=== PATIENT | female | born 1995 | race Caucasian/White ===

== ENCOUNTER 2024-04-17 11:02 | Inpatient (IN) ==
--- NOTE | 2024-04-17 11:33 | History & Physical Report ---
Date of Service April 17, 2024 Assessment & Plan (1) Supervision of normal intrauterine in primigravida: (2) Encounter for induction of labor: Plan Admit for iol. cannon/pit started. pt desires epidural. VSS. FHT category 1. Rh+, gbs neg, ri. Admission and Anticipated Discharge Date Admission Date: April 17, 2024 History of Present Illness Primary Care Provider: Holly Umana MD Marilee is a 29yo G1 currently at 41 WGA with an RADHA 04/10/24 as determined by US who is here for induction of labor. She has had regular appointments with OB. She has been short of breath for a few days, especially when lying down, and notes significant swelling in both legs and feet. She denies fevers, fatigue, STERN, chest pain, or n/v exceeding baseline -related symptoms. Mild, irregular contractions; movement present; no fluid loss or bloody show External FHT and external uterine monitors used, FHT category # (140/mod/acel+/decel-) Blood type: O+ Antibody screen: Neg GBS: Neg Rubella: Immune VDRL/RPR: Non-reactive Gonorrhea: Not detected Chalmydia: Not detected HIV: Non-reactive HbSAg: Non-reactive Allergies Allergy/AdvReac Type Severity Reaction Status Date / Time No Known Allergies Allergy Verified 04/16/24 09:05 Home Medications Medication Instructions Recorded Confirmed Type docosahexaenoic acid [ DHA] 1 tab PO UD 09/06/23 04/17/24 History Past Med/Surg History Problem List (Updated 04/17/24 @ 11:34 by Shani Ann MD) Encounter for induction of labor Encounter for anatomic survey Supervision of normal intrauterine in primigravida Muscle herniation Hyperinsulinism syndrome Obesity PCOS (polycystic ovarian syndrome) Medical History (Updated 04/17/24 @ 11:34 by Shani Ann MD) No known health problems Surgical History H/O wisdom tooth extraction Family History Mother Hypertension Family/Other Breast cancer maternal great aunt Other Family history non-contributory Myocardial infarction Stomach cancer Thyroid cancer Denies family history of Ovarian cancer Prostate cancer Colorectal cancer Social History Smoking Status: Never smoker Second Hand Exposure: No; Do You Dip or Chew Tobacco: No; Hx Alcohol Use: No Hx Substance Use: No Preferred Language: Divehi Communication Ability: Effective X Ray Nurse Required: No Beliefs That Will Affect Care: None marital status: marital status details: Luis Miguel (31) [phone] Current Living Situation: Spouse Current Living Situation Comment: Luis Miguel- current occupational status: employed current occupation: Radiation Therapist Other Information That Helps Us Care for You: No Feels Safe at Home: Yes Safety Concerns: Feels Safe At This Time Dental Care, Regularly: Yes Physical Activity Frequency: 1-2 Times per Week Seatbelt Use: always Sunscreen Use: Yes Assistive Devices: None Physical Exam Physical Exam: General: Alert and oriented. No acute distress CV: Regular rate and rhythm. No murmurs. Respiratory: CTA bilaterally. No rhonchi, wheezes, or crackles. No increased work of breathing. Abdomen: Gravid: Soft, nontender upon palpation Pelvic: 1/50/-2/soft/mid per Dr. Palacios Lower extremities: NO LE edema. No deep calf pain. Results & Data Results & Data Vital Signs (Past 12 Hours) Vital Signs Temp Pulse Resp BP Pulse Ox 04/17/24 11:42 64 95 04/17/24 11:37 65 96 04/17/24 11:32 68 94 04/17/24 11:27 66 95 04/17/24 11:22 71 94 04/17/24 11:17 69 92 04/17/24 11:12 70 95 04/17/24 11:07 72 95 04/17/24 11:04 20 04/17/24 11:04 36.9 C 20 04/17/24 11:04 69 125/58 L 04/17/24 11:03 75 94 Supervising Physician Co-Signing Physician Notes Resident Physician Supervision Note: I interviewed and examined the patient. Discussed with Dr. Faustin and agree with findings and plan as documented in the note. Any exceptions or clarifications are listed here: Patient is a g1po with iup at 41 weeks who presents for postdates induction. Patient notes she has been sob for many days. She notes she cannot lie flat. Has had swelling for several days as well. Not tachy. BP wnl. sating mostly >95% on room air. No JVD. Has +1-+2 pitting edema to the leg. Lungs ctab. Cx not favorable. cx--/-2. Verbal consent obatined for cannon for ripening. speculum placed. cannon threaded through cervix and balloon filled wtih 30cc of sterile water. speculum removed. tolerated well toco--intermittent contraction efm--140s wtih mod variability accels to 160s, no decels Start pit with bulb. arom when indicated. epidural on demand. anticipate . Documented By: Wanda Palacios MD, FACOG Resident Activity Tracking Resident Involvement: Resident Care Provided Care Provided: OB Delivery
[2024-04-17] MEDS ORDERED: LIDOCAINE 1% LOCAL 20 ML VIAL INFIL PRN (11:42)
[2024-04-17] MEDS ORDERED: OXYTOCIN 30 UNITS/NSS 30 UNITS/500 ML BAG IV PRN (11:42)
[2024-04-17] MEDS: OXYTOCIN 30 UNITS/NSS 30 UNITS/500 ML BAG IV PRN (12:15)
[2024-04-17] MEDS: LACTATED RINGER'S 1,000 ML IV PRN (12:15)
[2024-04-17 12:36] LABS: Hematocrit (blood only) 32.3 % (37.0-47.0); Hemoglobin 10.2 g/dl (12.0-16.0); Mean Corpuscular Hemoglobin 25.1 pg (25.0-34.0); Mean Corpuscular Hgb Conc 31.6 g/dL (32.0-36.0); Mean Corpuscular Volume 79.4 fL (80.0-100.0); Mean Platelet Volume 11.1 fL (9.4-12.4); Platelet Count 233 K/uL (130-400); RDW Standard Deviation 45.5 fL (36.4-46.3); Red Blood Count 4.07 M/uL (4.20-5.40); White Blood Count 10.25 K/ul (4.8-10.8)
[2024-04-17 12:38] LABS: Bilirubin,Total 0.4 mg/dl (0.2-1.0); Calcium 8.1 mg/dl (8.6-10.3); Potassium 3.8 mmol/L (3.5-5.1)
[2024-04-17 12:44] LABS: BUN Creatinine Ratio 14.5 (10-20); Creatinine Clr Calc Pharmacy 156.9 ml/min; Est GFR (African American) 139.3 ml/min; Est GFR (Non-African American) 120.2 ml/min; Globulin 3.1 gm/dl (2.5-4.0); Total Protein 6.1 gm/dl (6.0-8.3)
--- NOTE | 2024-04-17 18:26 | Labor Progress Brief Note ---
Date of Service April 17, 2024 Subjective notes some contractions , but not too painful Assessment & Plan (1) Encounter for induction of labor: Plan plan epidural then arom. Fetus category one. Admission and Anticipated Discharge Date Admission Date: April 17, 2024 Physical Exam Physical Exam: cx--4/75/-2 toco--q2-4, pit at 10 efm--130s with mod variability, accels to 150s, no decels Results & Data Vital Signs (Past 12 Hours) Vital Signs Temp Pulse Resp BP Pulse Ox 04/17/24 18:19 53 L 100 04/17/24 18:14 61 99 04/17/24 18:09 63 99 04/17/24 18:06 58 L 119/56 L 04/17/24 18:04 68 99 04/17/24 18:00 18 04/17/24 18:00 18 04/17/24 17:59 64 99 04/17/24 17:54 62 100 04/17/24 17:49 61 99 04/17/24 17:44 62 100 04/17/24 17:39 60 100 04/17/24 17:34 60 100 04/17/24 17:29 54 L 100 04/17/24 17:24 53 L 100 04/17/24 17:19 55 L 100 04/17/24 17:14 51 L 100 04/17/24 17:09 53 L 100 04/17/24 17:04 52 L 100 04/17/24 17:02 51 L 139/68 04/17/24 16:00 18 04/17/24 16:00 18 04/17/24 15:56 61 118/63 04/17/24 15:00 18 04/17/24 15:00 36.7 C 18 04/17/24 14:56 61 132/80 04/17/24 13:51 58 L 127/59 L 04/17/24 13:30 20 04/17/24 13:30 20 04/17/24 12:58 56 L 151/70 H 04/17/24 12:20 62 141/71 H 04/17/24 11:42 64 95 04/17/24 11:37 65 96 04/17/24 11:32 68 94 04/17/24 11:27 66 95 04/17/24 11:22 71 94 04/17/24 11:17 69 92 04/17/24 11:12 70 95 04/17/24 11:07 72 95 04/17/24 11:04 20 04/17/24 11:04 36.9 C 20 04/17/24 11:04 69 125/58 L 04/17/24 11:03 75 94 Coding Level of Care Code None Diagnoses Encounter for induction of labor Z34.90
[2024-04-17] MEDS ORDERED: ePHEDrine sulfate 50 MG/ML AMP IV PRN (18:53)
[2024-04-17] MEDS ORDERED: NALOXONE HCL 1 MG in SODIUM CHLORIDE 0.9% 1,000 ML IV PRN (18:53)
[2024-04-17] MEDS ORDERED: NALOXONE HCL 0.4 MG/1 ML VIAL/CARP IV PRN (18:53)
[2024-04-17] MEDS ORDERED: diphenhydrAMINE 50 MG/ML VIAL IV PRN (18:53)
[2024-04-17] MEDS ORDERED: BUPIVACAINE 0.25% PF 30 ML VIAL EPI PRN (18:53)
[2024-04-17] MEDS ORDERED: NALBUPHINE HCL INJ 10 MG/ML AMP IV PRN (18:53)
[2024-04-17] MEDS ORDERED: fentaNYL citrate PF 100 MCG/2 ML VIAL EPI PRN (18:53)
[2024-04-17] MEDS ORDERED: LIDOCAINE 2% MPF LOCAL 5 ML VIAL EPI PRN (18:53)
[2024-04-17] MEDS ORDERED: SODIUM CHLORIDE 0.9% PF INJ 10 ML VIAL EPI PRN (18:53)
[2024-04-17] MEDS ORDERED: ROPIVACAINE 0.5% PF 5 MG/ML 20 ML VIAL EPI PRN (18:53)
--- NOTE | 2024-04-17 18:53 | Anesthesiology Consultation ---
Date of Service April 17, 2024 Assessment & Plan Chart Review Chart Review: Acceptable Risk for Labor Epidural Consults Requested none History Height/Weight Height: 5 ft 2 in Weight: 113.852 kg Allergies Allergy/AdvReac Type Severity Reaction Status Date / Time No Known Allergies Allergy Verified 04/16/24 09:05 Medications Home Medications Medication Instructions Recorded Confirmed Last Taken docosahexaenoic acid [ DHA] 1 tab PO UD 09/06/23 04/17/24 04/16/24 09:00 Active Medications Generic Name Dose Route Start Last Admin Trade Name Freq PRN Reason Stop Dose Admin Lactated Ringer's 1,000 mls @ 125 mls/hr 04/17/24 11:42 04/17/24 18:38 Lr IV 04/19/24 11:41 999 mls/hr .Q8H PRN Administration L&D Protocol Protocol Oxytocin 30 units in 500 mls @ 10 mls/hr 04/17/24 11:43 04/17/24 18:00 Pitocin 30 Units/Nss IV 04/19/24 11:42 0.6 units/hr .Q24H PRN 10 mls/hr Labor Induction/Augmentation Titration Protocol 0.6 UNITS/HR Past Medical History Medical History (Updated 04/17/24 @ 11:34 by Shani Ann MD) No known health problems Past Family History Family History Mother Hypertension Family/Other Breast cancer maternal great aunt Other Family history non-contributory Myocardial infarction Stomach cancer Thyroid cancer Denies family history of Ovarian cancer Prostate cancer Colorectal cancer Past Surgical History Surgical History H/O wisdom tooth extraction Social History Smoking Status: Never smoker Do You Dip or Chew Tobacco: No Hx Alcohol Use: No Hx Substance Use: No Physical Exam Vital Signs Last Vital Signs Temp 36.7 C 04/17/24 15:00 Pulse 56 L 04/17/24 18:24 Resp 18 04/17/24 18:00 BP 119/56 L 04/17/24 18:06 Pulse Ox 100 04/17/24 18:24 Testing Laboratory Results 04/17/24 12:11 04/17/24 12:11 Blood Type O Positive 08/29/24 12:11 Antibody Screen NEGATIVE 04/17/24 12:11
[2024-04-17] MEDS: SODIUM CHLORIDE 0.9% PF INJ 10 ML VIAL ONE (19:00)
[2024-04-17] MEDS: fentaNYL citrate PF 100 MCG/2 ML VIAL ONE (19:00)
[2024-04-17] MEDS: fentANYL 2 MCG/ML BUPIVacaine 0.125%-NSS 100ML BAG ONE (19:00)
[2024-04-17] MEDS: LIDOCAINE 2%/EPINEPHRINE 1:200,000 20 ML PF ONE (19:00)
[2024-04-17] MEDS: ePHEDrine sulfate 50 MG/ML AMP ONE (19:00)
[2024-04-17] MEDS: BUPIVACAINE 0.25% PF 30 ML VIAL ONE (19:00)
[2024-04-17] MEDS: fentANYL 2 MCG/ML BUPIVacaine 0.125%-NSS 100ML BAG EPI PRN (19:22)
[2024-04-17] MEDS: LIDOCAINE 2%/EPINEPHRINE 1:200,000 20 ML PF EPI STA (19:22)
[2024-04-17] MEDS: SODIUM CHLORIDE 0.9% PF INJ 10 ML VIAL EPI STA (19:48)
[2024-04-17] MEDS: BUPIVACAINE 0.25% PF 30 ML VIAL EPI STA (19:48)
[2024-04-17] MEDS: CALCIUM CARBONATE 500 MG CHEWABLE TAB PO PRN (19:54)
[2024-04-17] MEDS: ONDANSETRON INJ 2 MG/ML 2 ML VIAL IV PRN (21:31)
--- NOTE | 2024-04-18 00:34 | Labor Progress Brief Note ---
Date of Service April 18, 2024 Subjective comfortable with epidural, pit at 16 Assessment & Plan (1) Encounter for induction of labor: Plan iupc and fse placed. mec noted with this check. With rom, did not get much fluid at all but noted with placement of iupc. Contractions do not appear adequate so will increase pit with goal of >200mvu. FEtus category one. Admission and Anticipated Discharge Date Admission Date: April 17, 2024 Physical Exam Physical Exam: cx--4-5/80/-2 toco--q2-3min efm--130s wtih mod variabiltiy, accels to 160s, no decels. Has periods of prolonged accels to 160s iupc and fse placed. mec noted with exam Results & Data Vital Signs (Past 12 Hours) Vital Signs Temp Pulse Resp BP Pulse Ox O2 Del Method 04/18/24 00:29 61 99 04/18/24 00:24 65 98 04/18/24 00:23 58 L 136/69 04/18/24 00:19 56 L 99 04/18/24 00:14 58 L 100 04/18/24 00:09 59 L 96 04/18/24 00:07 75 159/72 H 04/18/24 00:04 56 L 96 04/18/24 00:00 18 04/18/24 00:00 18 04/17/24 23:59 59 L 97 04/17/24 23:54 61 94 04/17/24 23:53 54 L 133/65 04/17/24 23:49 53 L 96 04/17/24 23:44 54 L 96 04/17/24 23:39 51 L 96 04/17/24 23:38 51 L 134/64 04/17/24 23:34 51 L 96 04/17/24 23:30 18 04/17/24 23:30 18 04/17/24 23:29 52 L 96 04/17/24 23:24 49 L 97 04/17/24 23:22 61 147/72 H 04/17/24 23:19 51 L 96 04/17/24 23:14 54 L 96 04/17/24 23:09 51 L 95 04/17/24 23:06 49 L 133/68 04/17/24 23:04 53 L 95 04/17/24 23:00 18 04/17/24 23:00 18 04/17/24 22:59 53 L 95 04/17/24 22:54 51 L 95 04/17/24 22:52 49 L 129/66 04/17/24 22:49 56 L 95 04/17/24 22:44 52 L 97 04/17/24 22:39 52 L 96 04/17/24 22:36 54 L 137/67 04/17/24 22:34 52 L 96 04/17/24 22:30 18 04/17/24 22:30 18 04/17/24 22:29 54 L 96 04/17/24 22:24 59 L 98 04/17/24 22:19 56 L 97 04/17/24 22:14 54 L 98 04/17/24 22:10 18 04/17/24 22:10 36.7 C 18 04/17/24 22:09 52 L 99 04/17/24 22:04 55 L 98 04/17/24 21:59 57 L 98 04/17/24 21:54 56 L 97 04/17/24 21:53 58 L 134/64 04/17/24 21:49 58 L 98 04/17/24 21:44 56 L 97 04/17/24 21:39 53 L 98 04/17/24 21:38 50 L 131/61 04/17/24 21:34 56 L 98 04/17/24 21:30 18 04/17/24 21:30 18 04/17/24 21:29 60 100 04/17/24 21:24 60 99 04/17/24 21:23 51 L 138/66 04/17/24 21:19 49 L 99 04/17/24 21:14 55 L 100 04/17/24 21:09 51 L 99 04/17/24 21:06 48 L 145/70 H 04/17/24 21:04 58 L 98 04/17/24 21:00 18 04/17/24 21:00 18 04/17/24 20:59 58 L 98 04/17/24 20:54 57 L 98 04/17/24 20:52 50 L 115/65 04/17/24 20:49 51 L 97 04/17/24 20:44 61 98 04/17/24 20:39 56 L 98 04/17/24 20:37 55 L 136/62 04/17/24 20:34 52 L 99 04/17/24 20:30 18 04/17/24 20:30 18 04/17/24 20:29 54 L 100 04/17/24 20:24 65 99 04/17/24 20:22 58 L 127/97 04/17/24 20:20 36.7 C 04/17/24 20:19 61 100 04/17/24 20:14 65 98 04/17/24 20:09 56 L 99 04/17/24 20:08 60 148/66 H 04/17/24 20:04 53 L 100 04/17/24 20:00 18 04/17/24 20:00 18 04/17/24 19:59 57 L 100 04/17/24 19:54 100 04/17/24 19:54 57 L 04/17/24 19:54 52 L 136/64 04/17/24 19:49 58 L 100 04/17/24 19:44 54 L 100 04/17/24 19:39 64 99 04/17/24 19:35 53 L 115/57 L 04/17/24 19:34 53 L 99 04/17/24 19:33 56 L 122/60 04/17/24 19:32 36.9 C 18 04/17/24 19:32 Room Air 04/17/24 19:31 54 L 120/59 L 04/17/24 19:29 56 L 122/59 L 99 04/17/24 19:27 56 L 126/56 L 04/17/24 19:25 57 L 114/58 L 04/17/24 19:24 60 99 04/17/24 19:23 58 L 113/56 L 04/17/24 19:21 72 121/51 L 04/17/24 19:20 69 128/58 L 04/17/24 19:19 76 99 04/17/24 19:17 68 144/64 H 04/17/24 19:15 61 135/63 04/17/24 19:14 59 L 99 04/17/24 19:12 51 L 85 L 04/17/24 19:09 61 100 04/17/24 19:08 36.9 C 54 L 18 145/64 H 04/17/24 19:04 56 L 99 04/17/24 18:24 56 L 100 04/17/24 18:19 53 L 100 04/17/24 18:14 61 99 04/17/24 18:09 63 99 04/17/24 18:06 58 L 119/56 L 04/17/24 18:04 68 99 04/17/24 18:00 18 04/17/24 18:00 18 04/17/24 17:59 64 99 04/17/24 17:54 62 100 04/17/24 17:49 61 99 04/17/24 17:44 62 100 04/17/24 17:39 60 100 04/17/24 17:34 60 100 04/17/24 17:29 54 L 100 04/17/24 17:24 53 L 100 04/17/24 17:19 55 L 100 04/17/24 17:14 51 L 100 04/17/24 17:09 53 L 100 04/17/24 17:04 52 L 100 04/17/24 17:02 51 L 139/68 04/17/24 16:00 18 04/17/24 16:00 18 04/17/24 15:56 61 118/63 04/17/24 15:00 18 04/17/24 15:00 36.7 C 18 04/17/24 14:56 61 132/80 04/17/24 13:51 58 L 127/59 L 04/17/24 13:30 20 04/17/24 13:30 20 04/17/24 12:58 56 L 151/70 H Coding Level of Care Code None Diagnoses Encounter for induction of labor Z34.90
--- NOTE | 2024-04-18 06:40 | Labor Progress Brief Note ---
Date of Service April 18, 2024 Subjective comfortable with epidural Assessment & Plan (1) Encounter for induction of labor: (2) Obesity: Plan Fetus category one. Not a functional labor pattern and mvs not adequate. Has not reached 30 mU at this point. Continue to attempt to achieve adequate contraction pattern. cx check deferred as not adequate. Admission and Anticipated Discharge Date Admission Date: April 17, 2024 Physical Exam Physical Exam: cx--deferred toco--q2min, Mvus <200, pit at 28 efm--135 with mod variability, accels to 150s, no decels Results & Data Vital Signs (Past 12 Hours) Vital Signs Temp Pulse Resp BP Pulse Ox O2 Del Method 04/18/24 06:34 51 L 96 04/18/24 06:29 49 L 96 04/18/24 06:24 52 L 96 04/18/24 06:22 49 L 140/65 04/18/24 06:19 53 L 97 04/18/24 06:14 57 L 97 04/18/24 06:10 16 04/18/24 06:10 37.0 C 16 04/18/24 06:09 51 L 96 04/18/24 06:08 56 L 142/63 H 04/18/24 06:04 65 97 04/18/24 06:00 16 04/18/24 06:00 16 04/18/24 05:59 50 L 96 04/18/24 05:54 50 L 96 04/18/24 05:53 48 L 137/64 04/18/24 05:49 56 L 95 04/18/24 05:44 55 L 95 04/18/24 05:39 52 L 96 04/18/24 05:37 52 L 127/70 04/18/24 05:34 58 L 96 04/18/24 05:30 16 04/18/24 05:30 16 04/18/24 05:29 61 96 04/18/24 05:24 54 L 96 04/18/24 05:23 53 L 131/58 L 04/18/24 05:19 53 L 96 04/18/24 05:14 53 L 95 04/18/24 05:09 51 L 96 04/18/24 05:07 50 L 134/61 04/18/24 05:04 56 L 95 04/18/24 05:00 16 04/18/24 05:00 16 04/18/24 04:59 56 L 96 04/18/24 04:54 53 L 96 04/18/24 04:52 60 157/65 H 04/18/24 04:49 51 L 96 04/18/24 04:44 57 L 96 04/18/24 04:39 55 L 96 04/18/24 04:38 57 L 133/70 04/18/24 04:34 53 L 97 04/18/24 04:30 16 04/18/24 04:30 16 04/18/24 04:29 53 L 96 04/18/24 04:24 58 L 95 04/18/24 04:23 57 L 131/73 04/18/24 04:19 52 L 95 04/18/24 04:14 54 L 96 04/18/24 04:09 60 95 04/18/24 04:07 59 L 133/64 04/18/24 04:04 60 96 04/18/24 04:00 16 04/18/24 04:00 37.0 C 16 04/18/24 03:59 54 L 95 04/18/24 03:54 57 L 96 04/18/24 03:52 63 128/65 04/18/24 03:49 53 L 96 04/18/24 03:44 58 L 96 04/18/24 03:39 56 L 96 04/18/24 03:37 59 L 134/67 04/18/24 03:34 59 L 96 04/18/24 03:29 57 L 96 04/18/24 03:24 58 L 96 04/18/24 03:21 69 154/73 H 04/18/24 03:19 60 95 04/18/24 03:14 53 L 95 04/18/24 03:09 57 L 95 04/18/24 03:07 61 135/64 04/18/24 03:04 59 L 95 04/18/24 02:59 61 94 04/18/24 02:54 62 95 04/18/24 02:52 68 146/64 H 04/18/24 02:49 55 L 96 04/18/24 02:44 56 L 96 04/18/24 02:39 57 L 96 04/18/24 02:36 48 L 140/68 04/18/24 02:34 60 95 04/18/24 02:29 57 L 95 04/18/24 02:24 57 L 95 04/18/24 02:21 58 L 138/61 04/18/24 02:19 60 95 04/18/24 02:14 59 L 97 04/18/24 02:11 18 04/18/24 02:11 36.9 C 18 04/18/24 02:09 66 97 04/18/24 02:06 50 L 139/65 04/18/24 02:04 59 L 96 04/18/24 02:00 18 04/18/24 02:00 18 04/18/24 01:59 59 L 96 04/18/24 01:54 56 L 96 04/18/24 01:51 59 L 138/62 04/18/24 01:49 57 L 96 04/18/24 01:44 60 96 04/18/24 01:39 56 L 96 04/18/24 01:36 57 L 149/67 H 04/18/24 01:34 57 L 96 04/18/24 01:29 58 L 96 04/18/24 01:24 61 95 04/18/24 01:23 56 L 135/61 04/18/24 01:19 61 96 04/18/24 01:14 59 L 97 04/18/24 01:09 54 L 96 04/18/24 01:07 63 139/63 04/18/24 01:04 60 96 04/18/24 01:00 18 04/18/24 01:00 18 04/18/24 00:59 57 L 96 04/18/24 00:54 55 L 96 04/18/24 00:49 60 97 04/18/24 00:44 56 L 137/66 99 04/18/24 00:42 51 L 126/67 04/18/24 00:40 18 04/18/24 00:40 18 04/18/24 00:39 56 L 98 04/18/24 00:38 57 L 152/70 H 04/18/24 00:34 63 99 04/18/24 00:29 61 99 04/18/24 00:24 65 98 04/18/24 00:23 58 L 136/69 04/18/24 00:19 56 L 99 04/18/24 00:15 18 04/18/24 00:15 18 04/18/24 00:15 18 04/18/24 00:15 36.9 C 18 04/18/24 00:14 58 L 100 04/18/24 00:09 59 L 96 04/18/24 00:07 75 159/72 H 04/18/24 00:04 56 L 96 04/18/24 00:00 18 04/18/24 00:00 18 04/17/24 23:59 59 L 97 04/17/24 23:54 61 94 04/17/24 23:53 54 L 133/65 04/17/24 23:49 53 L 96 04/17/24 23:44 54 L 96 04/17/24 23:39 51 L 96 04/17/24 23:38 51 L 134/64 04/17/24 23:34 51 L 96 04/17/24 23:30 18 04/17/24 23:30 18 04/17/24 23:29 52 L 96 04/17/24 23:24 49 L 97 04/17/24 23:22 61 147/72 H 04/17/24 23:19 51 L 96 04/17/24 23:14 54 L 96 04/17/24 23:09 51 L 95 04/17/24 23:06 49 L 133/68 04/17/24 23:04 53 L 95 04/17/24 23:00 18 04/17/24 23:00 18 04/17/24 22:59 53 L 95 04/17/24 22:54 51 L 95 04/17/24 22:52 49 L 129/66 04/17/24 22:49 56 L 95 04/17/24 22:44 52 L 97 04/17/24 22:39 52 L 96 04/17/24 22:36 54 L 137/67 04/17/24 22:34 52 L 96 04/17/24 22:30 18 04/17/24 22:30 18 04/17/24 22:29 54 L 96 04/17/24 22:24 59 L 98 04/17/24 22:19 56 L 97 04/17/24 22:14 54 L 98 04/17/24 22:10 18 04/17/24 22:10 36.7 C 18 04/17/24 22:09 52 L 99 04/17/24 22:04 55 L 98 04/17/24 21:59 57 L 98 04/17/24 21:54 56 L 97 04/17/24 21:53 58 L 134/64 04/17/24 21:49 58 L 98 04/17/24 21:44 56 L 97 04/17/24 21:39 53 L 98 04/17/24 21:38 50 L 131/61 04/17/24 21:34 56 L 98 04/17/24 21:30 18 04/17/24 21:30 18 04/17/24 21:29 60 100 04/17/24 21:24 60 99 04/17/24 21:23 51 L 138/66 04/17/24 21:19 49 L 99 04/17/24 21:14 55 L 100 04/17/24 21:09 51 L 99 04/17/24 21:06 48 L 145/70 H 04/17/24 21:04 58 L 98 04/17/24 21:00 18 04/17/24 21:00 18 04/17/24 20:59 58 L 98 04/17/24 20:54 57 L 98 04/17/24 20:52 50 L 115/65 04/17/24 20:49 51 L 97 04/17/24 20:44 61 98 04/17/24 20:39 56 L 98 04/17/24 20:37 55 L 136/62 04/17/24 20:34 52 L 99 04/17/24 20:30 18 04/17/24 20:30 18 04/17/24 20:29 54 L 100 04/17/24 20:24 65 99 04/17/24 20:22 58 L 127/97 04/17/24 20:20 36.7 C 04/17/24 20:19 61 100 04/17/24 20:14 65 98 04/17/24 20:09 56 L 99 04/17/24 20:08 60 148/66 H 04/17/24 20:04 53 L 100 04/17/24 20:00 18 04/17/24 20:00 18 04/17/24 19:59 57 L 100 04/17/24 19:54 100 04/17/24 19:54 57 L 04/17/24 19:54 52 L 136/64 04/17/24 19:49 58 L 100 08/29/24 19:44 54 L 100 04/17/24 19:39 64 99 04/17/24 19:35 53 L 115/57 L 04/17/24 19:34 53 L 99 04/17/24 19:33 56 L 122/60 04/17/24 19:32 36.9 C 18 04/17/24 19:32 Room Air 04/17/24 19:31 54 L 120/59 L 04/17/24 19:29 56 L 122/59 L 99 04/17/24 19:27 56 L 126/56 L 04/17/24 19:25 57 L 114/58 L 04/17/24 19:24 60 99 04/17/24 19:23 58 L 113/56 L 04/17/24 19:21 72 121/51 L 04/17/24 19:20 69 128/58 L 04/17/24 19:19 76 99 04/17/24 19:17 68 144/64 H 04/17/24 19:15 61 135/63 04/17/24 19:14 59 L 99 04/17/24 19:12 51 L 85 L 04/17/24 19:09 61 100 04/17/24 19:08 36.9 C 54 L 18 145/64 H 04/17/24 19:04 56 L 99 Coding Level of Care Code None Diagnoses Encounter for induction of labor Z34.90 Obesity E66.9
--- NOTE | 2024-04-18 10:02 | Labor Progress Brief Note ---
Date of Service April 18, 2024 Subjective pt comfortable with epidural. she is tired. asks about baby status Assessment & Plan (1) Encounter for induction of labor: Plan discussed with pt that thus far inadequate labor by mvu's. pit now at 30. options are to halve pit and try to retitrate to achieve adequate labor pattern. right now on exam, there does not seem to be any power of ctx. fhts categ 1, pt reassured by me that in no way is fetus showing anything concerns, explained spont accels etc. she can choose to proceed to c/s now electively. i have not made a diagnosis of failure to progress. Even if we try to persist with getting better labor pattern she may not progress, she may ultimately need c/s. She asked me if I can predict this and I cannot. FHTs categ 1, so i think we have time to try ie. no signs of needing to change course. Admission and Anticipated Discharge Date Admission Date: April 17, 2024 Physical Exam Constitutional: WD/WN, vitals as above Genitourinary: Manual OB Exam: + cervical dilation (no pressure of cephalic against cx. ) 5 cm, + cervical effacement (75%), + station -2 and + amniotic fluid (thin) meconium OB Exam Monitor Tracing: + scalp electrode used, + intra-uterine pressure catheter used (mvu's inadeq), + category I and + normal FHT variability Results & Data Vital Signs (Past 12 Hours) Vital Signs Temp Pulse Resp BP Pulse Ox 04/18/24 09:54 50 L 97 04/18/24 09:49 54 L 98 04/18/24 09:44 47 L 95 04/18/24 09:39 49 L 95 04/18/24 09:37 47 L 155/70 H 04/18/24 09:34 48 L 94 04/18/24 09:30 20 04/18/24 09:30 20 04/18/24 09:29 50 L 94 04/18/24 09:24 46 L 95 04/18/24 09:22 46 L 153/68 H 04/18/24 09:19 46 L 95 04/18/24 09:14 46 L 95 04/18/24 09:09 47 L 95 04/18/24 09:06 44 L 139/68 04/18/24 09:04 48 L 95 04/18/24 08:59 48 L 95 04/18/24 08:54 49 L 95 04/18/24 08:51 99.0 F 45 L 20 137/65 04/18/24 08:49 48 L 96 04/18/24 08:44 52 L 98 04/18/24 08:39 50 L 98 04/18/24 08:37 50 L 138/63 04/18/24 08:34 63 96 04/18/24 08:29 51 L 96 04/18/24 08:24 52 L 96 04/18/24 08:22 49 L 166/74 H 04/18/24 08:19 53 L 95 04/18/24 08:14 48 L 97 04/18/24 08:09 49 L 96 04/18/24 08:06 56 L 161/77 H 04/18/24 08:04 52 L 97 04/18/24 07:59 50 L 96 04/18/24 07:54 51 L 98 04/18/24 07:53 56 L 163/76 H 04/18/24 07:49 52 L 97 04/18/24 07:44 54 L 97 04/18/24 07:39 48 L 95 04/18/24 07:36 51 L 149/72 H 04/18/24 07:34 46 L 97 04/18/24 07:29 51 L 95 04/18/24 07:24 56 L 96 04/18/24 07:21 52 L 20 153/82 H 04/18/24 07:20 98.2 F 20 04/18/24 07:19 49 L 97 04/18/24 07:15 51 L 153/74 H 04/18/24 07:14 98 04/18/24 07:14 56 L 04/18/24 07:14 56 L 163/73 H 04/18/24 07:09 59 L 98 04/18/24 07:08 59 L 176/78 H 04/18/24 07:04 48 L 95 04/18/24 06:59 54 L 95 04/18/24 06:54 48 L 96 04/18/24 06:52 51 L 155/72 H 04/18/24 06:49 54 L 95 04/18/24 06:44 53 L 95 04/18/24 06:39 50 L 95 04/18/24 06:37 51 L 156/72 H 04/18/24 06:34 51 L 96 04/18/24 06:29 49 L 96 04/18/24 06:24 52 L 96 04/18/24 06:22 49 L 140/65 04/18/24 06:19 53 L 97 04/18/24 06:14 57 L 97 04/18/24 06:10 16 04/18/24 06:10 98.6 F 16 04/18/24 06:09 51 L 96 04/18/24 06:08 56 L 142/63 H 04/18/24 06:04 65 97 04/18/24 06:00 16 04/18/24 06:00 16 04/18/24 05:59 50 L 96 04/18/24 05:54 50 L 96 04/18/24 05:53 48 L 137/64 04/18/24 05:49 56 L 95 04/18/24 05:44 55 L 95 04/18/24 05:39 52 L 96 04/18/24 05:37 52 L 127/70 04/18/24 05:34 58 L 96 04/18/24 05:30 16 04/18/24 05:30 16 04/18/24 05:29 61 96 04/18/24 05:24 54 L 96 04/18/24 05:23 53 L 131/58 L 04/18/24 05:19 53 L 96 04/18/24 05:14 53 L 95 04/18/24 05:09 51 L 96 04/18/24 05:07 50 L 134/61 04/18/24 05:04 56 L 95 04/18/24 05:00 16 04/18/24 05:00 16 04/18/24 04:59 56 L 96 04/18/24 04:54 53 L 96 04/18/24 04:52 60 157/65 H 04/18/24 04:49 51 L 96 04/18/24 04:44 57 L 96 04/18/24 04:39 55 L 96 04/18/24 04:38 57 L 133/70 04/18/24 04:34 53 L 97 04/18/24 04:30 16 04/18/24 04:30 16 04/18/24 04:29 53 L 96 04/18/24 04:24 58 L 95 04/18/24 04:23 57 L 131/73 04/18/24 04:19 52 L 95 04/18/24 04:14 54 L 96 04/18/24 04:09 60 95 04/18/24 04:07 59 L 133/64 04/18/24 04:04 60 96 04/18/24 04:00 16 04/18/24 04:00 98.6 F 16 04/18/24 03:59 54 L 95 04/18/24 03:54 57 L 96 04/18/24 03:52 63 128/65 04/18/24 03:49 53 L 96 04/18/24 03:44 58 L 96 04/18/24 03:39 56 L 96 04/18/24 03:37 59 L 134/67 04/18/24 03:34 59 L 96 04/18/24 03:29 57 L 96 04/18/24 03:24 58 L 96 04/18/24 03:21 69 154/73 H 04/18/24 03:19 60 95 04/18/24 03:14 53 L 95 04/18/24 03:09 57 L 95 04/18/24 03:07 61 135/64 04/18/24 03:04 59 L 95 04/18/24 02:59 61 94 04/18/24 02:54 62 95 04/18/24 02:52 68 146/64 H 04/18/24 02:49 55 L 96 04/18/24 02:44 56 L 96 04/18/24 02:39 57 L 96 04/18/24 02:36 48 L 140/68 04/18/24 02:34 60 95 04/18/24 02:29 57 L 95 04/18/24 02:24 57 L 95 04/18/24 02:21 58 L 138/61 04/18/24 02:19 60 95 04/18/24 02:14 59 L 97 04/18/24 02:11 18 04/18/24 02:11 98.4 F 18 04/18/24 02:09 66 97 04/18/24 02:06 50 L 139/65 04/18/24 02:04 59 L 96 04/18/24 02:00 18 04/18/24 02:00 18 04/18/24 01:59 59 L 96 04/18/24 01:54 56 L 96 04/18/24 01:51 59 L 138/62 04/18/24 01:49 57 L 96 04/18/24 01:44 60 96 04/18/24 01:39 56 L 96 04/18/24 01:36 57 L 149/67 H 04/18/24 01:34 57 L 96 04/18/24 01:29 58 L 96 04/18/24 01:24 61 95 04/18/24 01:23 56 L 135/61 04/18/24 01:19 61 96 04/18/24 01:14 59 L 97 04/18/24 01:09 54 L 96 04/18/24 01:07 63 139/63 04/18/24 01:04 60 96 04/18/24 01:00 18 04/18/24 01:00 18 04/18/24 00:59 57 L 96 04/18/24 00:54 55 L 96 04/18/24 00:49 60 97 04/18/24 00:44 56 L 137/66 99 04/18/24 00:42 51 L 126/67 04/18/24 00:40 18 04/18/24 00:40 18 04/18/24 00:39 56 L 98 04/18/24 00:38 57 L 152/70 H 04/18/24 00:34 63 99 04/18/24 00:29 61 99 04/18/24 00:24 65 98 04/18/24 00:23 58 L 136/69 04/18/24 00:19 56 L 99 04/18/24 00:15 18 04/18/24 00:15 18 04/18/24 00:15 18 04/18/24 00:15 98.4 F 18 04/18/24 00:14 58 L 100 04/18/24 00:09 59 L 96 04/18/24 00:07 75 159/72 H 04/18/24 00:04 56 L 96 04/18/24 00:00 18 04/18/24 00:00 18 04/17/24 23:59 59 L 97 04/17/24 23:54 61 94 04/17/24 23:53 54 L 133/65 04/17/24 23:49 53 L 96 04/17/24 23:44 54 L 96 04/17/24 23:39 51 L 96 04/17/24 23:38 51 L 134/64 04/17/24 23:34 51 L 96 04/17/24 23:30 18 04/17/24 23:30 18 04/17/24 23:29 52 L 96 04/17/24 23:24 49 L 97 04/17/24 23:22 61 147/72 H 04/17/24 23:19 51 L 96 04/17/24 23:14 54 L 96 04/17/24 23:09 51 L 95 04/17/24 23:06 49 L 133/68 04/17/24 23:04 53 L 95 04/17/24 23:00 18 04/17/24 23:00 18 04/17/24 22:59 53 L 95 04/17/24 22:54 51 L 95 04/17/24 22:52 49 L 129/66 04/17/24 22:49 56 L 95 04/17/24 22:44 52 L 97 04/17/24 22:39 52 L 96 04/17/24 22:36 54 L 137/67 04/17/24 22:34 52 L 96 04/17/24 22:30 18 04/17/24 22:30 18 04/17/24 22:29 54 L 96 04/17/24 22:24 59 L 98 04/17/24 22:19 56 L 97 04/17/24 22:14 54 L 98 04/17/24 22:10 18 04/17/24 22:10 98.1 F 18 04/17/24 22:09 52 L 99 04/17/24 22:04 55 L 98 04/17/24 21:59 57 L 98 Coding Level of Care Code None Diagnoses Encounter for induction of labor Z34.90
[2024-04-18] MEDS ORDERED: PROMETHAZINE 25 MG/51 ML BAG IV PRN (11:44)
[2024-04-18] MEDS ORDERED: LIDOCAINE 2%/EPINEPHRINE 1:200,000 20 ML PF ONE (13:12)
[2024-04-18] MEDS ORDERED: ROPIVACAINE 0.5% 5 MG/ML 30 ML VIAL ONE (13:12)
--- NOTE | 2024-04-18 14:36 | Labor Progress Brief Note ---
Date of Service April 18, 2024 Subjective pt comfortable. pit now at 29 Assessment & Plan (1) Encounter for induction of labor: Plan failed induction. we have now reached pit at 30 and tried to halve and rebuild and still no adequate labor pattern and no cervical change. offered proceeding to c/s at this time. pt agrees. fhts categ 1. bp noted and pulse noted, will add hydralazine 5mg iv now. consent reviewed and signed. anesth and nursery aware. Admission and Anticipated Discharge Date Admission Date: April 17, 2024 Physical Exam Constitutional: WD/WN, vitals as above BP elevated Genitourinary: Manual OB Exam: + cervical dilation (no change, pit at 29, inadeq mvu's) Results & Data Vital Signs (Past 12 Hours) Vital Signs Temp Pulse Resp BP Pulse Ox 04/18/24 14:34 55 L 98 04/18/24 14:30 54 L 183/81 H 04/18/24 14:29 59 L 98 04/18/24 14:25 56 L 181/79 H 04/18/24 14:24 58 L 98 04/18/24 14:19 52 L 95 04/18/24 14:14 54 L 94 04/18/24 14:09 53 L 94 04/18/24 14:04 52 L 95 04/18/24 13:59 53 L 96 04/18/24 13:55 53 L 182/76 H 04/18/24 13:54 53 L 98 04/18/24 13:49 52 L 94 04/18/24 13:44 53 L 94 04/18/24 13:39 60 156/72 H 97 04/18/24 13:34 51 L 96 04/18/24 13:29 53 L 95 04/18/24 13:24 50 L 95 04/18/24 13:22 52 L 148/67 H 04/18/24 13:19 51 L 95 04/18/24 13:14 52 L 96 04/18/24 13:09 50 L 95 04/18/24 13:08 48 L 158/74 H 04/18/24 13:04 49 L 96 04/18/24 12:59 51 L 97 04/18/24 12:54 50 L 96 04/18/24 12:51 51 L 151/68 H 04/18/24 12:49 49 L 95 04/18/24 12:44 50 L 96 04/18/24 12:40 99.5 F 49 L 16 04/18/24 12:40 16 04/18/24 12:40 99.5 F 49 L 16 04/18/24 12:39 50 L 95 04/18/24 12:37 51 L 142/66 H 04/18/24 12:34 47 L 95 04/18/24 12:29 48 L 95 04/18/24 12:24 52 L 158/70 H 93 04/18/24 12:19 51 L 20 96 04/18/24 12:14 51 L 96 04/18/24 12:09 51 L 96 04/18/24 12:06 52 L 20 136/62 04/18/24 12:04 47 L 95 04/18/24 12:00 20 04/18/24 12:00 20 04/18/24 11:59 47 L 95 04/18/24 11:54 47 L 96 04/18/24 11:53 50 L 144/65 H 04/18/24 11:49 49 L 95 04/18/24 11:44 48 L 96 04/18/24 11:39 54 L 98 04/18/24 11:38 50 L 148/67 H 04/18/24 11:34 52 L 96 04/18/24 11:29 49 L 96 04/18/24 11:24 54 L 96 04/18/24 11:23 99.3 F 48 L 18 142/67 H 04/18/24 11:19 50 L 96 04/18/24 11:14 51 L 95 04/18/24 11:09 48 L 95 04/18/24 11:08 48 L 141/65 H 04/18/24 11:04 47 L 95 04/18/24 10:59 49 L 95 04/18/24 10:54 50 L 95 04/18/24 10:52 52 L 20 134/63 04/18/24 10:49 49 L 95 04/18/24 10:44 49 L 95 04/18/24 10:39 50 L 94 04/18/24 10:36 48 L 18 131/60 04/18/24 10:34 47 L 96 04/18/24 10:29 47 L 96 04/18/24 10:24 48 L 97 04/18/24 10:22 49 L 20 137/67 04/18/24 10:19 67 96 04/18/24 10:14 46 L 97 04/18/24 10:09 53 L 97 04/18/24 10:08 48 L 18 150/67 H 04/18/24 10:06 49 L 179/80 H 04/18/24 10:04 51 L 97 04/18/24 09:59 48 L 97 04/18/24 09:54 50 L 97 04/18/24 09:49 54 L 98 04/18/24 09:44 47 L 95 04/18/24 09:39 49 L 95 04/18/24 09:37 47 L 155/70 H 04/18/24 09:34 48 L 94 04/18/24 09:30 20 04/18/24 09:30 20 04/18/24 09:29 50 L 94 04/18/24 09:24 46 L 95 04/18/24 09:22 46 L 153/68 H 04/18/24 09:19 46 L 95 04/18/24 09:14 46 L 95 04/18/24 09:09 47 L 95 04/18/24 09:06 44 L 139/68 04/18/24 09:04 48 L 95 04/18/24 09:00 20 04/18/24 09:00 99.0 F 20 04/18/24 08:59 48 L 95 04/18/24 08:54 49 L 95 04/18/24 08:51 99.0 F 45 L 20 137/65 04/18/24 08:49 48 L 96 04/18/24 08:44 52 L 98 04/18/24 08:39 50 L 98 04/18/24 08:37 50 L 138/63 04/18/24 08:34 63 96 04/18/24 08:29 51 L 96 04/18/24 08:24 52 L 96 04/18/24 08:22 49 L 166/74 H 04/18/24 08:19 53 L 95 04/18/24 08:14 48 L 97 04/18/24 08:09 49 L 96 04/18/24 08:06 56 L 161/77 H 04/18/24 08:04 52 L 97 04/18/24 07:59 50 L 96 04/18/24 07:54 51 L 98 04/18/24 07:53 56 L 163/76 H 04/18/24 07:49 52 L 97 04/18/24 07:44 54 L 97 04/18/24 07:39 48 L 95 04/18/24 07:36 51 L 149/72 H 04/18/24 07:34 46 L 97 04/18/24 07:29 51 L 95 04/18/24 07:24 56 L 96 04/18/24 07:21 52 L 20 153/82 H 04/18/24 07:20 98.2 F 20 04/18/24 07:19 49 L 97 04/18/24 07:15 51 L 153/74 H 04/18/24 07:14 98 04/18/24 07:14 56 L 04/18/24 07:14 56 L 163/73 H 04/18/24 07:09 59 L 98 04/18/24 07:08 59 L 176/78 H 04/18/24 07:04 48 L 95 04/18/24 06:59 54 L 95 04/18/24 06:54 48 L 96 04/18/24 06:52 51 L 155/72 H 04/18/24 06:49 54 L 95 04/18/24 06:44 53 L 95 04/18/24 06:39 50 L 95 04/18/24 06:37 51 L 156/72 H 04/18/24 06:34 51 L 96 04/18/24 06:29 49 L 96 04/18/24 06:24 52 L 96 04/18/24 06:22 49 L 140/65 04/18/24 06:19 53 L 97 04/18/24 06:14 57 L 97 04/18/24 06:10 16 04/18/24 06:10 98.6 F 16 04/18/24 06:09 51 L 96 04/18/24 06:08 56 L 142/63 H 04/18/24 06:04 65 97 04/18/24 06:00 16 04/18/24 06:00 16 04/18/24 05:59 50 L 96 04/18/24 05:54 50 L 96 04/18/24 05:53 48 L 137/64 04/18/24 05:49 56 L 95 04/18/24 05:44 55 L 95 04/18/24 05:39 52 L 96 04/18/24 05:37 52 L 127/70 04/18/24 05:34 58 L 96 04/18/24 05:30 16 04/18/24 05:30 16 04/18/24 05:29 61 96 04/18/24 05:24 54 L 96 04/18/24 05:23 53 L 131/58 L 04/18/24 05:19 53 L 96 04/18/24 05:14 53 L 95 04/18/24 05:09 51 L 96 04/18/24 05:07 50 L 134/61 04/18/24 05:04 56 L 95 04/18/24 05:00 16 04/18/24 05:00 16 04/18/24 04:59 56 L 96 04/18/24 04:54 53 L 96 04/18/24 04:52 60 157/65 H 04/18/24 04:49 51 L 96 04/18/24 04:44 57 L 96 04/18/24 04:39 55 L 96 04/18/24 04:38 57 L 133/70 04/18/24 04:34 53 L 97 04/18/24 04:30 16 04/18/24 04:30 16 04/18/24 04:29 53 L 96 04/18/24 04:24 58 L 95 04/18/24 04:23 57 L 131/73 04/18/24 04:19 52 L 95 04/18/24 04:14 54 L 96 04/18/24 04:09 60 95 04/18/24 04:07 59 L 133/64 04/18/24 04:04 60 96 04/18/24 04:00 16 04/18/24 04:00 98.6 F 16 04/18/24 03:59 54 L 95 04/18/24 03:54 57 L 96 04/18/24 03:52 63 128/65 04/18/24 03:49 53 L 96 04/18/24 03:44 58 L 96 04/18/24 03:39 56 L 96 04/18/24 03:37 59 L 134/67 04/18/24 03:34 59 L 96 04/18/24 03:29 57 L 96 04/18/24 03:24 58 L 96 04/18/24 03:21 69 154/73 H 04/18/24 03:19 60 95 04/18/24 03:14 53 L 95 04/18/24 03:09 57 L 95 04/18/24 03:07 61 135/64 04/18/24 03:04 59 L 95 04/18/24 02:59 61 94 04/18/24 02:54 62 95 04/18/24 02:52 68 146/64 H 04/18/24 02:49 55 L 96 04/18/24 02:44 56 L 96 04/18/24 02:39 57 L 96 04/18/24 02:36 48 L 140/68 Coding Level of Care Code None Diagnoses Encounter for induction of labor Z34.90
[2024-04-18] MEDS ORDERED: LACTATED RINGER'S 1,000 ML IV SCH ×3 (14:45→18:01)
[2024-04-18] MEDS ORDERED: ONDANSETRON INJ 2 MG/ML 2 ML VIAL ONE (14:45)
[2024-04-18] MEDS: hydrALAZINE HCL 20 MG/ML VIAL IV ONE (14:48)
[2024-04-18] MEDS: CITRIC ACID/SODIUM CITRATE 15 ML UDC PO SCH (14:50)
[2024-04-18] MEDS: ACETAMINOPHEN 500 MG TAB PO SCH (14:52)
[2024-04-18] MEDS: ceFAZolin 3000MG 3,000 MG/72.5 ML BAG IV SCH (14:52)
[2024-04-18] MEDS ORDERED: fentaNYL citrate PF 100 MCG/2 ML VIAL ONE (15:17)
[2024-04-18] MEDS: CARBOPROST TROMETHAMINE 250 MCG/ML AMPUL IM ONE (15:24)
[2024-04-18] MEDS ORDERED: CARBOPROST TROMETHAMINE 250 MCG/ML AMPUL ONE (15:28)
[2024-04-18] MEDS ORDERED: MoRPHine SULFATE PF 1 MG/ML 10 ML AMP/VIAL ONE (15:28)
[2024-04-18] MEDS ORDERED: OXYTOCIN 10 UNITS/ML VIAL ONE (15:37)
[2024-04-18] MEDS ORDERED: KETOROLAC 30 MG/ML VIAL ONE (15:53)
--- NOTE | 2024-04-18 15:57 | Operative Report ---
Post Operative Report Pre & Post Diagnosis Operation Date: 04/18/24 15:00 Pre-Op Diagnosis: Post dates Obesity Failed induction Post-Op Diagnosis: Post dates Obesity Failed induction I identified the patient and participated in the time-out.: Yes Procedure Operation Date: 04/18/24 15:00 Actual Procedures p Primary Low Transverse Section in LD(Bilateral) - Alisia Alegria MD, FACOG Surgeon Alisia Alegria MD, FACOG Program Engagement Director RN Quantitative Blood Loss (QBL) 964 Findings Consistent with Post-Op Diagnosis (viable female infant apgars 8,9, normal uterus tubes and ovaries bilaterally. ) Fluids 1000cc Specimens cord blood Drains cannon Anesthesia Type Labor Epidural Complications none Disposition Accompanied Patient To Recovery: No Disposition: L&D Indications 29yo with cc of admitted for planned induction of labor for postdatism. Unable to achieve adequate labor and c/s recommended for failed induction. See notes for detail. Description of Procedure The patient was taken to the operating room and identified. After adequate anesthesia was obtained, she was placed in the supine position with a leftward tilt on the operating table and prepped and draped in the usual sterile fashion. A cannon catheter had already been placed. The knife was used to create a Pfannensteil skin incision that was carried down to the underlying layer of fascia. The fascia was nicked in the midline and this opening was extended laterally using Flores scissors. Adair clamps were placed on the superior and inferior aspect of the fascial incision tenting it upward and the underlying rectus muscles were dissected off the overlying fascia both sharply and bluntly using Flores scissors. The rectus muscles were bluntly in the midline. The peritoneal cavity was bluntly entered into. This opening was stretched. The bladder blade was placed. The vesicouterine peritoneum was elevated and opened up into and the bladder flap was created digitally and bladder blade was replaced. The knife was used to create a hysterotomy and this opening was stretched. The operators hand was placed through the hysterotomy and the bladder blade was removed. The head was elevated and flexed and with fundal pressure the head was delivered. The shoulders and body were rapidly delivered. The cord was clamped and cut and the infant's mouth and nares were bulb suction. The infant was handed off to the awaiting pediatricians. Cord blood was obtained. The placenta was manually expressed. The uterus was exteriorized and cleared of all clots and debris. Dilute IV Pitocin was begun. The uterine tone was boggy and therefore IM hemabate into the uterine muscle given on field. The uterine tone was improving. The hysterotomy was closed in a running interlocking fashion using 0 Vicryl followed by a second imbricating lay er of 0 Vicryl. The hysterotomy was hemostatic. The pelvis was irrigated. The uterus was returned to the abdomen. The gutters were cleared of all clots and debris. The hysterotomy was reinspected and noted to be hemostatic. The fascia was then closed in running fashion using 0 Vicryl. The subcutaneous fat was copiously irrigated and reapproximated using 2-0 chromic. The skin was closed in a subcuticular fashion using 4-0 monocryl. At this point the procedure was terminated. The patient was transferred to the recovery room in stable condition. All sponge, lap and needle counts are correct x2. I attest to the content of the Intraoperative Record and any orders documented therein. Any exceptions are noted below. OB Procedure Charges [id number]
--- NOTE | 2024-04-18 16:14 | Anesthesia Procedure Note ---
Date of Service April 18, 2024 Anesthesia Post Epidural Note Vital Signs Vital Signs: Temp Pulse Resp BP Pulse Ox O2 Del Method 99.5 F 67 20 94/50 L 94 Room Air 04/18/24 14:45 04/18/24 16:09 04/18/24 14:45 04/18/24 16:09 04/18/24 16:04/17/24 19:32 Notes Mental Status: alert / awake / arousable and participated in evaluation Nausea / Vomiting: adequately controlled Pain: adequately controlled Airway Patency, RR, SpO2: stable & adequate BP & HR: stable & adequate Hydration State: stable & adequate Neuraxial Anesthesia: was administered and sensory block is resolving Anesthetic Complications: no major complications apparent and Pt Satisfied with anesthetic care Epidural: Removed without complications and With tip intact
--- NOTE | 2024-04-18 16:20 | Anesthesiology Progress Note ---
Date of Service April 18, 2024 Anesthesia Post Procedure Vital Signs Vital Signs: Temp Pulse Resp BP Pulse Ox O2 Del Method 04/18/24 16:15 67 94 04/18/24 16:14 65 95 04/18/24 16:09 67 94/50 L 94 04/18/24 14:56 56 L 162/77 H 04/18/24 14:54 55 L 97 04/18/24 14:49 54 L 97 04/18/24 14:45 20 04/18/24 14:45 99.5 F 20 04/18/24 14:44 65 98 04/18/24 14:39 53 L 97 04/18/24 14:34 55 L 98 04/18/24 14:30 99.5 F 54 L 20 183/81 H 04/18/24 14:29 59 L 98 04/18/24 14:25 56 L 181/79 H 04/18/24 14:24 58 L 98 04/18/24 14:19 52 L 95 04/18/24 14:14 54 L 94 04/18/24 14:09 53 L 94 04/18/24 14:04 52 L 95 04/18/24 13:59 53 L 96 04/18/24 13:55 53 L 182/76 H 04/18/24 13:54 53 L 98 04/18/24 13:49 52 L 94 04/18/24 13:44 53 L 94 04/18/24 13:39 60 156/72 H 97 04/18/24 13:34 51 L 96 04/18/24 13:29 53 L 95 04/18/24 13:24 50 L 95 04/18/24 13:22 52 L 148/67 H 04/18/24 13:19 51 L 95 04/18/24 13:14 52 L 96 04/18/24 13:09 50 L 95 04/18/24 13:08 48 L 158/74 H 04/18/24 13:04 49 L 96 04/18/24 12:59 51 L 97 04/18/24 12:54 50 L 96 04/18/24 12:51 51 L 151/68 H 04/18/24 12:49 49 L 95 04/18/24 12:44 50 L 96 04/18/24 12:40 99.5 F 49 L 16 04/18/24 12:40 16 04/18/24 12:40 99.5 F 49 L 16 04/18/24 12:39 50 L 95 04/18/24 12:37 51 L 142/66 H 04/18/24 12:34 47 L 95 04/18/24 12:29 48 L 95 04/18/24 12:24 52 L 158/70 H 93 04/18/24 12:19 51 L 20 96 04/18/24 12:14 51 L 96 04/18/24 12:09 51 L 96 04/18/24 12:06 52 L 20 136/62 04/18/24 12:04 47 L 95 04/18/24 12:00 20 04/18/24 12:00 20 04/18/24 11:59 47 L 95 04/18/24 11:54 47 L 96 04/18/24 11:53 50 L 144/65 H 04/18/24 11:49 49 L 95 04/18/24 11:44 48 L 96 04/18/24 11:39 54 L 98 04/18/24 11:38 50 L 148/67 H 04/18/24 11:34 52 L 96 04/18/24 11:29 49 L 96 04/18/24 11:24 54 L 96 04/18/24 11:23 99.3 F 48 L 18 142/67 H 04/18/24 11:19 50 L 96 04/18/24 11:14 51 L 95 04/18/24 11:09 48 L 95 04/18/24 11:08 48 L 141/65 H 04/18/24 11:04 47 L 95 04/18/24 10:59 49 L 95 04/18/24 10:54 50 L 95 04/18/24 10:52 52 L 20 134/63 04/18/24 10:49 49 L 95 04/18/24 10:44 49 L 95 04/18/24 10:39 50 L 94 04/18/24 10:36 48 L 18 131/60 04/18/24 10:34 47 L 96 04/18/24 10:29 47 L 96 04/18/24 10:24 48 L 97 04/18/24 10:22 49 L 20 137/67 04/18/24 10:19 67 96 04/18/24 10:14 46 L 97 04/18/24 10:09 53 L 97 04/18/24 10:08 48 L 18 150/67 H 04/18/24 10:06 49 L 179/80 H 04/18/24 10:04 51 L 97 04/18/24 09:59 48 L 97 04/18/24 09:54 50 L 97 04/18/24 09:49 54 L 98 04/18/24 09:44 47 L 95 04/18/24 09:39 49 L 95 04/18/24 09:37 47 L 155/70 H 04/18/24 09:34 48 L 94 04/18/24 09:30 20 04/18/24 09:30 20 04/18/24 09:29 50 L 94 04/18/24 09:24 46 L 95 04/18/24 09:22 46 L 153/68 H 04/18/24 09:19 46 L 95 04/18/24 09:14 46 L 95 04/18/24 09:09 47 L 95 04/18/24 09:06 44 L 139/68 04/18/24 09:04 48 L 95 04/18/24 09:00 20 04/18/24 09:00 99.0 F 20 04/18/24 08:59 48 L 95 04/18/24 08:54 49 L 95 04/18/24 08:51 99.0 F 45 L 20 137/65 04/18/24 08:49 48 L 96 04/18/24 08:44 52 L 98 04/18/24 08:39 50 L 98 04/18/24 08:37 50 L 138/63 04/18/24 08:34 63 96 04/18/24 08:29 51 L 96 04/18/24 08:24 52 L 96 04/18/24 08:22 49 L 166/74 H 04/18/24 08:19 53 L 95 04/18/24 08:14 48 L 97 04/18/24 08:09 49 L 96 04/18/24 08:06 56 L 161/77 H 04/18/24 08:04 52 L 97 04/18/24 07:59 50 L 96 04/18/24 07:54 51 L 98 04/18/24 07:53 56 L 163/76 H 04/18/24 07:49 52 L 97 04/18/24 07:44 54 L 97 04/18/24 07:39 48 L 95 04/18/24 07:36 51 L 149/72 H 04/18/24 07:34 46 L 97 04/18/24 07:29 51 L 95 04/18/24 07:24 56 L 96 04/18/24 07:21 52 L 20 153/82 H 04/18/24 07:20 98.2 F 20 04/18/24 07:19 49 L 97 04/18/24 07:15 51 L 153/74 H 04/18/24 07:14 98 04/18/24 07:14 56 L 04/18/24 07:14 56 L 163/73 H 04/18/24 07:09 59 L 98 04/18/24 07:08 59 L 176/78 H 04/18/24 07:04 48 L 95 04/18/24 06:59 54 L 95 04/18/24 06:54 48 L 96 04/18/24 06:52 51 L 155/72 H 04/18/24 06:49 54 L 95 04/18/24 06:44 53 L 95 04/18/24 06:39 50 L 95 04/18/24 06:37 51 L 156/72 H 04/18/24 06:34 51 L 96 04/18/24 06:29 49 L 96 04/18/24 06:24 52 L 96 04/18/24 06:22 49 L 140/65 04/18/24 06:19 53 L 97 04/18/24 06:14 57 L 97 04/18/24 06:10 16 04/18/24 06:10 98.6 F 16 04/18/24 06:09 51 L 96 04/18/24 06:08 56 L 142/63 H 04/18/24 06:04 65 97 04/18/24 06:00 16 04/18/24 06:00 16 04/18/24 05:59 50 L 96 04/18/24 05:54 50 L 96 04/18/24 05:53 48 L 137/64 04/18/24 05:49 56 L 95 04/18/24 05:44 55 L 95 04/18/24 05:39 52 L 96 04/18/24 05:37 52 L 127/70 04/18/24 05:34 58 L 96 04/18/24 05:30 16 04/18/24 05:30 16 04/18/24 05:29 61 96 04/18/24 05:24 54 L 96 04/18/24 05:23 53 L 131/58 L 04/18/24 05:19 53 L 96 04/18/24 05:14 53 L 95 04/18/24 05:09 51 L 96 04/18/24 05:07 50 L 134/61 04/18/24 05:04 56 L 95 04/18/24 05:00 16 04/18/24 05:00 16 04/18/24 04:59 56 L 96 04/18/24 04:54 53 L 96 04/18/24 04:52 60 157/65 H 04/18/24 04:49 51 L 96 04/18/24 04:44 57 L 96 04/18/24 04:39 55 L 96 04/18/24 04:38 57 L 133/70 04/18/24 04:34 53 L 97 04/18/24 04:30 16 04/18/24 04:30 16 04/18/24 04:29 53 L 96 04/18/24 04:24 58 L 95 04/18/24 04:23 57 L 131/73 04/18/24 04:19 52 L 95 04/18/24 04:14 54 L 96 04/18/24 04:09 60 95 04/18/24 04:07 59 L 133/64 04/18/24 04:04 60 96 04/18/24 04:00 16 04/18/24 04:00 98.6 F 16 04/18/24 03:59 54 L 95 04/18/24 03:54 57 L 96 04/18/24 03:52 63 128/65 04/18/24 03:49 53 L 96 04/18/24 03:44 58 L 96 04/18/24 03:39 56 L 96 04/18/24 03:37 59 L 134/67 04/18/24 03:34 59 L 96 04/18/24 03:29 57 L 96 04/18/24 03:24 58 L 96 04/18/24 03:21 69 154/73 H 04/18/24 03:19 60 95 04/18/24 03:14 53 L 95 04/18/24 03:09 57 L 95 04/18/24 03:07 61 135/64 04/18/24 03:04 59 L 95 04/18/24 02:59 61 94 04/18/24 02:54 62 95 04/18/24 02:52 68 146/64 H 04/18/24 02:49 55 L 96 04/18/24 02:44 56 L 96 04/18/24 02:39 57 L 96 04/18/24 02:36 48 L 140/68 04/18/24 02:34 60 95 04/18/24 02:29 57 L 95 04/18/24 02:24 57 L 95 04/18/24 02:21 58 L 138/61 04/18/24 02:19 60 95 04/18/24 02:14 59 L 97 04/18/24 02:11 18 04/18/24 02:11 98.4 F 18 04/18/24 02:09 66 97 04/18/24 02:06 50 L 139/65 04/18/24 02:04 59 L 96 04/18/24 02:00 18 04/18/24 02:00 18 04/18/24 01:59 59 L 96 04/18/24 01:54 56 L 96 04/18/24 01:51 59 L 138/62 04/18/24 01:49 57 L 96 04/18/24 01:44 60 96 04/18/24 01:39 56 L 96 04/18/24 01:36 57 L 149/67 H 04/18/24 01:34 57 L 96 04/18/24 01:29 58 L 96 04/18/24 01:24 61 95 04/18/24 01:23 56 L 135/61 04/18/24 01:19 61 96 04/18/24 01:14 59 L 97 04/18/24 01:09 54 L 96 04/18/24 01:07 63 139/63 04/18/24 01:04 60 96 04/18/24 01:00 18 04/18/24 01:00 18 04/18/24 00:59 57 L 96 04/18/24 00:54 55 L 96 04/18/24 00:49 60 97 04/18/24 00:44 56 L 137/66 99 04/18/24 00:42 51 L 126/67 04/18/24 00:40 18 04/18/24 00:40 18 04/18/24 00:39 56 L 98 04/18/24 00:38 57 L 152/70 H 04/18/24 00:34 63 99 04/18/24 00:29 61 99 04/18/24 00:24 65 98 04/18/24 00:23 58 L 136/69 04/18/24 00:19 56 L 99 04/18/24 00:15 18 04/18/24 00:15 18 04/18/24 00:15 18 04/18/24 00:15 98.4 F 18 04/18/24 00:14 58 L 100 04/18/24 00:09 59 L 96 04/18/24 00:07 75 159/72 H 04/18/24 00:04 56 L 96 04/18/24 00:00 18 04/18/24 00:00 18 04/17/24 23:59 59 L 97 04/17/24 23:54 61 94 04/17/24 23:53 54 L 133/65 04/17/24 23:49 53 L 96 04/17/24 23:44 54 L 96 04/17/24 23:39 51 L 96 04/17/24 23:38 51 L 134/64 04/17/24 23:34 51 L 96 04/17/24 23:30 18 04/17/24 23:30 18 04/17/24 23:29 52 L 96 04/17/24 23:24 49 L 97 04/17/24 23:22 61 147/72 H 04/17/24 23:19 51 L 96 04/17/24 23:14 54 L 96 04/17/24 23:09 51 L 95 04/17/24 23:06 49 L 133/68 04/17/24 23:04 53 L 95 04/17/24 23:00 18 04/17/24 23:00 18 04/17/24 22:59 53 L 95 04/17/24 22:54 51 L 95 04/17/24 22:52 49 L 129/66 04/17/24 22:49 56 L 95 04/17/24 22:44 52 L 97 04/17/24 22:39 52 L 96 04/17/24 22:36 54 L 137/67 04/17/24 22:34 52 L 96 04/17/24 22:30 18 04/17/24 22:30 18 04/17/24 22:29 54 L 96 04/17/24 22:24 59 L 98 04/17/24 22:19 56 L 97 04/17/24 22:14 54 L 98 04/17/24 22:10 18 04/17/24 22:10 98.1 F 18 04/17/24 22:09 52 L 99 04/17/24 22:04 55 L 98 04/17/24 21:59 57 L 98 04/17/24 21:54 56 L 97 04/17/24 21:53 58 L 134/64 04/17/24 21:49 58 L 98 04/17/24 21:44 56 L 97 04/17/24 21:39 53 L 98 04/17/24 21:38 50 L 131/61 04/17/24 21:34 56 L 98 04/17/24 21:30 18 04/17/24 21:30 18 04/17/24 21:29 60 100 04/17/24 21:24 60 99 04/17/24 21:23 51 L 138/66 04/17/24 21:19 49 L 99 04/17/24 21:14 55 L 100 04/17/24 21:09 51 L 99 04/17/24 21:06 48 L 145/70 H 04/17/24 21:04 58 L 98 04/17/24 21:00 18 04/17/24 21:00 18 04/17/24 20:59 58 L 98 04/17/24 20:54 57 L 98 04/17/24 20:52 50 L 115/65 04/17/24 20:49 51 L 97 04/17/24 20:44 61 98 04/17/24 20:39 56 L 98 04/17/24 20:37 55 L 136/62 04/17/24 20:34 52 L 99 04/17/24 20:30 18 04/17/24 20:30 18 04/17/24 20:29 54 L 100 04/17/24 20:24 65 99 04/17/24 20:22 58 L 127/97 04/17/24 20:20 98.1 F 04/17/24 20:19 61 100 04/17/24 20:14 65 98 04/17/24 20:09 56 L 99 04/17/24 20:08 60 148/66 H 04/17/24 20:04 53 L 100 04/17/24 20:00 18 04/17/24 20:00 18 04/17/24 19:59 57 L 100 04/17/24 19:54 100 04/17/24 19:54 57 L 04/17/24 19:54 52 L 136/64 04/17/24 19:49 58 L 100 04/17/24 19:44 54 L 100 04/17/24 19:39 64 99 04/17/24 19:35 53 L 115/57 L 04/17/24 19:34 53 L 99 04/17/24 19:33 56 L 122/60 04/17/24 19:32 98.4 F 18 04/17/24 19:32 Room Air 04/17/24 19:31 54 L 120/59 L 04/17/24 19:29 56 L 122/59 L 99 04/17/24 19:27 56 L 126/56 L 04/17/24 19:25 57 L 114/58 L 04/17/24 19:24 60 99 04/17/24 19:23 58 L 113/56 L 04/17/24 19:21 72 121/51 L 04/17/24 19:20 69 128/58 L 04/17/24 19:19 76 99 04/17/24 19:17 68 144/64 H 04/17/24 19:15 61 135/63 04/17/24 19:14 59 L 99 04/17/24 19:12 51 L 85 L 04/17/24 19:09 61 100 04/17/24 19:08 98.4 F 54 L 18 145/64 H 04/17/24 19:04 56 L 99 04/17/24 18:24 56 L 100 04/17/24 18:19 53 L 100 04/17/24 18:14 61 99 04/17/24 18:09 63 99 04/17/24 18:06 58 L 119/56 L 04/17/24 18:04 68 99 04/17/24 18:00 18 04/17/24 18:00 18 04/17/24 17:59 64 99 04/17/24 17:54 62 100 04/17/24 17:49 61 99 04/17/24 17:44 62 100 04/17/24 17:39 60 100 04/17/24 17:34 60 100 04/17/24 17:29 54 L 100 04/17/24 17:24 53 L 100 04/17/24 17:19 55 L 100 04/17/24 17:14 51 L 100 04/17/24 17:09 53 L 100 04/17/24 17:04 52 L 100 04/17/24 17:02 51 L 139/68 Transfer of Care Handoff Completed per policy Notes Mental Status: alert / awake / arousable and participated in evaluation Patient Amnestic to Procedure: Yes Nausea / Vomiting: adequately controlled Pain: adequately controlled Airway Patency, RR, SpO2: stable & adequate BP & HR: stable & adequate Hydration State: stable & adequate Neuraxial Anesthesia: was administered and sensory block is resolving Anesthetic Complications: no major complications apparent and Pt Satisfied with anesthetic care
[2024-04-18] MEDS: AZITHROMYCIN 500 MG in DEXTROSE 5% 250 ML IV SCH (18:00)
[2024-04-18] MEDS: hydrALAZINE HCL 20 MG/ML VIAL ONE (18:00)
[2024-04-18] MEDS ORDERED: SENNA 8.6 MG TAB PO PRN (18:01)
[2024-04-18] MEDS ORDERED: BENZOCAINE 20% SPRY 85 APPLN/85 GM CAN EXT PRN (18:01)
[2024-04-18] MEDS ORDERED: HYDROCORTISONE ACETATE 25 MG SUPP PR PRN (18:01)
[2024-04-18] MEDS ORDERED: MAGNESIUM HYDROXIDE SUSP 30 ML UDC PO PRN (18:01)
[2024-04-18] MEDS ORDERED: Nursing to Pharmacy Communication SCH (18:15)
[2024-04-18] MEDS: OXYTOCIN 20 UNITS/LR 1,002 ML IV SCH (18:16)
[2024-04-18] MEDS: DIPHTHER/TETAN/PERTUS Vaccine (Tdap, Adol/Adult) 0.5mL IM ONE (18:18)
[2024-04-18] MEDS: SIMETHICONE 80 MG CHEW PO SCH (18:19)
[2024-04-18] MEDS: ACETAMINOPHEN 325 MG TAB PO SCH (18:22)
[2024-04-18] MEDS ORDERED: ONDANSETRON INJ 2 MG/ML 2 ML VIAL IV PRN (19:03)
[2024-04-18] MEDS ORDERED: KETOROLAC 30 MG/ML VIAL IV PRN (19:03)
[2024-04-18] MEDS ORDERED: MoRPHine SULFATE PF 1 MG/ML 10 ML AMP/VIAL EPI ONE (19:03)
[2024-04-18] MEDS ORDERED: NALOXONE HCL 1 MG in SODIUM CHLORIDE 0.9% 1,000 ML IV PRN (19:03)
[2024-04-18] MEDS ORDERED: NALOXONE HCL 0.4 MG/1 ML VIAL/CARP IV PRN (19:03)
[2024-04-18] MEDS ORDERED: NALOXONE HCL 0.08 MG in SYRINGE 1.8 ML IV PRN (19:03)
[2024-04-18] MEDS ORDERED: LACTATED RINGER'S 500 ML IV PRN (19:03)
[2024-04-18] MEDS ORDERED: ePHEDrine sulfate 50 MG/ML AMP IV PRN (19:03)
[2024-04-18] MEDS ORDERED: ACETAMINOPHEN 1,000 MG/100 ML VIAL IV PRN (19:03)
[2024-04-18] MEDS ORDERED: diphenhydrAMINE 50 MG/ML VIAL IV PRN (19:03)
[2024-04-18] MEDS ORDERED: NALBUPHINE HCL INJ 10 MG/ML AMP IV PRN (19:03)
[2024-04-18] MEDS ORDERED: HYDROmorphone INJ 0.5 MG/0.5 ML SYR IV PRN (19:03)
[2024-04-18] MEDS ORDERED: PROMETHAZINE 6.25 MG/50.25 ML BAG IV PRN (19:03)
[2024-04-18] MEDS ORDERED: DC INTRASPINAL MORPHINE SCH (19:15)
[2024-04-18] MEDS ORDERED: SODIUM CHLORIDE 0.9% 1,000 ML IV SCH (19:15)
[2024-04-18] MEDS ORDERED: NO NARCOTICS OR SEDATIVES SCH (19:15)
[2024-04-18] MEDS: IBUPROFEN 600 MG TAB PO SCH (19:53)
[2024-04-18] MEDS: DOCUSATE SODIUM 100 MG CAP PO SCH (20:15)
--- NOTE | 2024-04-19 06:10 | Obstetrical Progress Note ---
Date of Service April 19, 2024 Assessment & Plan (1) care and examination: Plan doing well stable. routine care. hgb pending. reviewed circumstances of LD. cont with diet, po pain meds. ambulate, expect flatus soon. Day #:: 1 Subjective Ambulation: ambulating normally Voiding: no voiding problems Passing Gas:: No Diet Tolerance:: regular diet Lochia:: Small Feeding Type:: breast feeding denies pain issues, moreso painful when bending at waist. wants to take a shower. Constitutional: + as per Subjective / HPI Physical Exam Constitutional WD/WN, vitals as above Respiratory normal respiratory effort, lungs clear to auscultation Cardiovascular Rate/Rhythm: regular rate and regular rhythm Gastrointestinal (Abdomen) Inspection/Auscultation: abdomen normal to inspection and + abdominal surgical incision (c/d/i) Percussion/Palpation: abdomen soft Fundus firm 1cm down Musculoskeletal nt calves tr edema Neurologic grossly normal Psychiatric A+Ox3, euthymic affect Results & Data Vital Signs (Past 12 Hours) Vital Signs Temp Pulse Pulse Resp BP BP Pulse Ox 04/19/24 04:30 98.1 F 77 18 108/67 95 04/19/24 04:00 20 99 04/19/24 03:00 18 97 04/19/24 02:00 16 97 04/19/24 01:00 18 99 04/19/24 00:00 98.2 F 88 18 135/80 98 04/18/24 23:02 18 100 04/18/24 22:00 16 98 04/18/24 21:00 16 97 04/18/24 20:00 16 98 04/18/24 20:00 04/18/24 19:00 18 98 04/18/24 18:58 98.6 F 63 18 138/69 96 04/18/24 18:35 20 98 04/18/24 18:25 61 99 04/18/24 18:21 68 166/73 H 04/18/24 18:20 65 98 04/18/24 18:15 98.4 F 20 04/18/24 18:15 68 99 04/18/24 18:10 62 98 O2 Del Method 04/19/24 04:30 Room Air 04/19/24 04:00 04/19/24 03:00 04/19/24 02:00 04/19/24 01:00 04/19/24 00:00 Room Air 04/18/24 23:02 04/18/24 22:00 04/18/24 21:00 04/18/24 20:00 04/18/24 20:00 Room Air 04/18/24 19:00 04/18/24 18:58 Room Air 04/18/24 18:35 04/18/24 18:25 04/18/24 18:21 04/18/24 18:20 04/18/24 18:15 04/18/24 18:15 04/18/24 18:10
[2024-04-19 06:40] LABS: Basophils # (auto) 0.02 K/uL (0.00-0.20); Basophils % (auto) 0.1 %; Eosinophils # (auto) 0.02 K/uL (0.00-0.50); Eosinophils % (auto) 0.1 %; Hematocrit (blood only) 23.9 % (37.0-47.0); Hemoglobin 7.8 g/dl (12.0-16.0); Immature Granulocytes # (auto) 0.12 K/uL (0.01-0.20); Immature Granulocytes % (auto) 0.7 %; Lymphocytes # (auto) 1.17 K/uL (1.20-3.40); Lymphocytes % (auto) 6.8 %; Mean Corpuscular Hemoglobin 25.8 pg (25.0-34.0); Mean Corpuscular Hgb Conc 32.6 g/dL (32.0-36.0); Mean Corpuscular Volume 79.1 fL (80.0-100.0); Mean Platelet Volume 11.3 fL (9.4-12.4); Monocytes # (auto) 0.76 K/uL (0.11-0.59); Monocytes % (auto) 4.4 %; Neutrophils # (auto) 15.14 K/uL (1.40-6.50); Neutrophils % (auto) 87.9 %; Platelet Count 177 K/uL (130-400); RDW Coefficient of Variation 15.9 % (11.5-14.5); RDW Standard Deviation 45.6 fL (36.4-46.3); Red Blood Count 3.02 M/uL (4.20-5.40); White Blood Count 17.23 K/ul (4.8-10.8)
[2024-04-19] MEDS: PRENATAL VITAMIN 1 TAB PO SCH (07:36)
[2024-04-19] MEDS: FERROUS SULFATE 325 MG TAB PO SCH (07:36)
[2024-04-19] MEDS ORDERED: oxyCODONE HCL IR 5 MG TAB (IMMEDIATE RELEASE) PO PRN (13:00)
[2024-04-19] MEDS ORDERED: diphenhydrAMINE 50 MG/ML VIAL IV PRN (13:00)
[2024-04-19] MEDS ORDERED: diphenhydrAMINE Capsule 25 MG CAP PO PRN (13:00)
[2024-04-19] MEDS ORDERED: HYDROmorphone INJ 0.5 MG/0.5 ML SYR IV PRN (13:00)
[2024-04-19] MEDS ORDERED: ZOLPIDEM TARTRATE 5 MG TAB PO PRN (13:00)
[2024-04-19] MEDS ORDERED: ONDANSETRON INJ 2 MG/ML 2 ML VIAL IV PRN (13:00)
[2024-04-19] MEDS ORDERED: PROMETHAZINE 12.5 MG/50.5 ML BAG IV PRN (13:00)
[2024-04-19] MEDS: bisacodyL 5 MG TABEC PO SCH (20:05)
[2024-04-20 06:56] LABS: Hematocrit (blood only) 26.6 % (37.0-47.0); Hemoglobin 8.3 g/dl (12.0-16.0)
--- NOTE | 2024-04-20 08:37 | Obstetrical Progress Note ---
Date of Service April 20, 2024 Assessment & Plan (1) care and examination: post op day 2 doing well, cont current care incision cdi plan discharge tomorrow Subjective Ambulation: ambulating normally Voiding: no voiding problems Passing Gas:: Yes Diet Tolerance:: regular diet Lochia:: Small Feeding Type:: breast feeding Physical Exam Constitutional WD/WN, vitals as above well developed and well nourished Respiratory normal respiratory effort, lungs clear to auscultation normal respiratory effort Cardiovascular RRR, no murmur, no edema Gastrointestinal (Abdomen) normal bowel sounds, soft, nontender, no hepatosplenomegaly Results & Data Vital Signs (Past 12 Hours) Vital Signs Temp Pulse Resp BP Pulse Ox O2 Del Method 04/20/24 07:52 98.2 F 80 20 120/79 97 Room Air
[2024-04-20] MEDS ORDERED: bisacodyL 10 MG SUPP PR PRN (16:09)
[2024-04-20] MEDS: ACETAMINOPHEN 325 MG TAB PO PRN (18:17)
[2024-04-20] MEDS: IBUPROFEN 600 MG TAB PO PRN (18:17)
[2024-04-21 01:05] VITALS: TEMP 98.1
--- NOTE | 2024-04-21 07:45 | Obstetrical Progress Note ---
Date of Service April 21, 2024 Assessment & Plan (1) care and examination: Postoperative from section patient meets discharge criteria as she is ambulating well tolerating an oral diet has minimal bleeding and no extremity pain. Discharge instructions were reviewed and prescriptions were sent to her pharmacy of choice patient advised to call with any concerns and follow-up in the office discussed Subjective Ambulation: ambulating normally Voiding: no voiding problems Passing Gas:: Yes Diet Tolerance:: regular diet Physical Exam Constitutional WD/WN, vitals as above well developed and well nourished Respiratory normal respiratory effort, lungs clear to auscultation normal respiratory effort Cardiovascular RRR, no murmur, no edema Gastrointestinal (Abdomen) normal bowel sounds, soft, nontender, no hepatosplenomegaly Results & Data Vital Signs (Past 12 Hours) Vital Signs Temp Pulse Resp BP Pulse Ox O2 Del Method 04/21/24 00:35 98.1 F 68 16 113/75 96 Room Air 04/20/24 19:50 98.2 F 88 18 114/78 97 Room Air
[2024-04-21 10:23] VITALS: BP 117/77; PULSE 70; RESP 18; O2SAT 97
--- NOTE | 2024-04-22 10:22 | Coding Query ---
TREATMENT RENDERED WITHOUT A DIAGNOSIS To promote full compliance with coding requirements relating to patient care, physician participation is requested in all cases of icd 9 coder uncertainty. Please assist us with the question(s) below: Coding Question: The patient had additional clot expressed from uterus at conclusion of surgery, as noted in the 04/18/24 operative report addendum of the record. Please document the diagnosis that is being addressed by the medication/treatment. Addendum April 18, 2024 18:36 at conclusion of surgery additional clot expressed from uterus and when weighed QBL [id number] Provider Response: There is no additional diagnosis, i was just being complete. Thank you Nell DAMON
--- NOTE | 2024-04-22 14:06 | Discharge Summary ---
Date of Service Date of admission: 04/17/24 Date of discharge: April 21, 2024 Admission HPI Per Admitting Provider Marilee is a 29yo G1 currently at 39 WGA with an RADHA 04/10/24 as determined by US who is here for induction of labor. She has had regular appointments with OB. She has been short of breath for a few days, especially when lying down, and notes significant swelling in both legs and feet. She denies fevers, fatigue, STERN, chest pain, or n/v exceeding baseline -related symptoms. Mild, irregular contractions; movement present; no fluid loss or bloody show External FHT and external uterine monitors used, FHT category # (140/mod/acel+/decel-) Blood type: O+ Antibody screen: Neg GBS: Neg Rubella: Immune VDRL/RPR: Non-reactive Gonorrhea: Not detected Chalmydia: Not detected HIV: Non-reactive HbSAg: Non-reactive Discharge Data Consultations 04/17/24 11:42 Consult Anesthesiology Stat Procedures Performed Operation Date: 04/18/24 15:00 Actual Procedures p Primary Low Transverse Section in LD(Bilateral) - Alisia Alegria MD, [facility] Course (1) care and examination: (2) Gestational hypertension: Plan The patient was admitted on 04/17/24 for induction of labor. She received pitocin and cannon balloon and ultimately requested epidural. At one point during pitocin infusion internal monitors were placed to verify intensity of labor pattern. Only for 2 hours were mvu's adequate and when pitocin reached 30, dose was halved and reincreased to 30 with no documented adequate labor pattern by mvu's. The cervix did not change further and patient counseled regarding failed induction and offered section which was performed on 04/18/24. The course and recovery was uncomplicated. The patient did require a dose of hydralazine during her labor due to >160 sbp with pulse <60, however her bps normalized. Her postop hgb was 8.3. She was stable to d/c home on her day #3 where she was meeting discharge criteria. Approp riate pain meds were sent to her pharmacy. Coding Level of Care Code None Diagnoses care and examination Z39.2 Gestational hypertension O13.9
== END 2024-04-21 12:25 | disposition home or self-care (01) | DRG 788 ==
LOC: 4S1 11:02 → 4E2 04-18 18:37